=== PATIENT | male | born 1950 | race Caucasian/White ===

== ENCOUNTER → 2016-12-22 | Outpatient (CLI) | payer BC ==
[~2016-12-22] MED LIST: BACTRIM DS DPS1 TAB PO; FLOMAX DPS0.4 MG PO; LIPITOR DPS40 MG PO; MIRALAX DPS17 GM PO; NORCO 5-325 TA1 EACH PO; TOPROL XL DPS100 MG PO
== END | disposition home or self-care (01) ==
LOC: RAD.S 10:04
DX: R22.2 Localized swelling, mass and lump, trunk (principal)

== ENCOUNTER → 2016-12-29 | Outpatient (CLI) | payer BC | END | disposition home or self-care (01) | DX: R22.32 Localized swelling, mass and lump, left upper limb (principal); I10 Essential (primary) hypertension ==